=== PATIENT | female | born 1945 | race Caucasian/White ===

== ENCOUNTER 2021-08-07 20:07 | Inpatient (IN) | payer MEDICARE, SELFPAY ==
--- NOTE | ~2021-08-07 | CT_ITS ---
EXAMINATION: CT HEAD WITHOUT CONTRAST CLINICAL INFORMATION: Change in mental status. COMPARISON: None TECHNIQUE: Contiguous axial imaging was performed from the skull base to vertex without intravenous administration of contrast. This CT examination was performed using dose optimization techniques as appropriate, variously including the following: *Automated exposure control *Adjustment of mA and/or kV according to patient size (this includes techniques or standardized protocols for targeted exams where dose is matched to indication/reason for exam; i.e. extremities or head) *Use of iterative reconstruction technique DLP: 617 mGy-cm FINDINGS: There is no evidence of acute intracranial hemorrhage or edematous territorial infarction. A few foci of hypoattenuation in the periventricular and deep white matter are consistent with mild microangiopathy. Anton-white matter differentiation is preserved. Proportional prominence of the ventricles and sulcal spaces. No evidence for obstructive hydrocephalus. No abnormal mass effect or midline shift. No extra-axial fluid collections. No acute soft tissue or osseous abnormalities. Mucosal thickening of the right maxillary sinus which is also asymmetrically hypoexpanded. Remaining of the paranasal sinuses and mastoids are clear. CT/CT head/brain wo con IMPRESSION: No evidence of acute intracranial hemorrhage or edematous territorial infarction. 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 Right maxillary sinus disease. Correlate clinically for acute sinusitis.
[2021-08-07 20:50] VITALS: BP 141/67; PULSE 78; RESP 18; TEMP 37.1; O2SAT 96
[2021-08-07 21:49] LABS: Glucose, Whole Blood 300 mg/dL (60-115)
[2021-08-07] MEDS: traMADoL HCL 50 MG TABLET PO (22:50)
[2021-08-08] VITALS (7 sets, daily range): BP systolic 141–152; BP diastolic 60–74; PULSE 77–151; RESP 18; TEMP 36.7–37.1; O2SAT 95–97; BMI 24.7
[2021-08-08] MEDS: traZODone HCL 50 MG TABLET PO (01:37)
--- NOTE | 2021-08-08 01:44 | PC.ADMIT ---
Patient is a 76 year old female who arrived from [facility]
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
[2021-08-08 07:55] LABS: Glucose, Whole Blood 195 mg/dL (60-115)
[2021-08-08] MEDS: Valsartan 160 MG TABLET PO (08:07)
[2021-08-08] MEDS: Metoprolol Succinate ER 100 MG TAB.ER.24H PO (08:07)
[2021-08-08] MEDS: hydroCHLOROthiazide 12.5 MG TABLET PO (08:08)
[2021-08-08] MEDS: cloNIDine HCL 0.1 MG TABLET PO ×3 (08:08→20:20)
[2021-08-08] MEDS: amLODIPine Besylate 5 MG TABLET PO (08:09)
[2021-08-08] MEDS: Insulin Lispro 100 UNIT/ML 3 ML VIAL SUBCUT ×4 (08:09→20:21)
[2021-08-08 12:00] LABS: Glucose, Whole Blood 371 mg/dL (60-115)
--- NOTE | 2021-08-08 12:11 | PC.NURSE ---
Patient is alert. POC at 12:00 is 371. 10 unit insulin lispro given. notified.
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
[2021-08-08 15:51] LABS: Appearance Urine CLEAR; Color Urine YELLOW; Glucose Urine UA >=1000 MG/DL (NEG); Leukocyte Esterase Urine 1+ (NEG); Nitrite Urine NEG (NEG); PH 5.5 (5.0-8.0); Urine Blood NEG (NEG); Urine Ketones NEG (NEG); Urine Protein TRACE MG/DL (NEG-TRACE)
[2021-08-08 16:11] LABS: Bacteria Urine TRACE /LPF; Squamous Epithelial Cell Urine 1+ /LPF
[2021-08-08 16:27] LABS: Glucose, Whole Blood 208 mg/dL (60-115)
[2021-08-08] MEDS: traMADoL HCL 50 MG TABLET PO (16:55)
[2021-08-08 19:44] LABS: Glucose, Whole Blood 412 mg/dL (60-115)
[2021-08-08] MEDS: Atorvastatin Calcium 40 MG TABLET PO (20:20)
[2021-08-08] MEDS: cephALEXin 500 MG CAPSULE PO (20:21)
[2021-08-08 21:23] LABS: Glucose, Whole Blood 406 mg/dL (60-115)
[2021-08-08] MEDS: Insulin Lispro 100 UNIT/ML 3 ML VIAL 10 UNIT SUBCUT (21:58)
[2021-08-08 22:49] LABS: Glucose, Whole Blood 337 mg/dL (60-115)
[2021-08-09] VITALS (7 sets, daily range): BP systolic 132–151; BP diastolic 62–68; PULSE 85–98; RESP 18; TEMP 37.1–37.4; O2SAT 98
[2021-08-09 06:06] LABS: Glucose, Whole Blood 233 mg/dL (60-115)
[2021-08-09 07:32] LABS: MANUAL DIFF FLAG NO
[2021-08-09 07:44] LABS: Basophils Absolute Auto 0.1 X10*3/uL (0.0-0.2); Basophils Percent Auto 0.6 % (0-2); Eosinophils Absolute Auto 0.4 X10*3/uL (0.0-0.4); Eosinophils Percent Auto 4.2 % (0-4); Hematocrit 39.8 % (37.0-47.0); Hemoglobin 13.5 g/dl (12.0-16.0); Imm Gran Abs Auto 0.04 X10*3/uL (0.00-0.03); Imm Gran Pct Auto 0.4 % (0.0-0.4); Lymphocytes Absolute Auto 2.9 X10*3/uL (1.2-4.9); Mean Corpuscular HGB Conc 33.9 g/dl (31.0-35.0); Mean Corpuscular Hemoglobin 29.3 pg (27.0-33.0); Mean Corpuscular Volume 86.5 fL (80.0-98.0); Mean Platelet Volume 10.3 fL (9.4-12.3); Monocytes Percent Auto 11.1 % (2-11); Neutrophils Absolute Auto 4.7 x10*3/uL (2.0-8.3); Neutrophils Percent Auto 51.7 % (45-73); Platelet Count 321 X10*3/uL (160-400); Red Cell Distribution Width 11.9 % (11.0-16.0)
[2021-08-09 07:51] LABS: Anion Gap 14 (12-20); Blood Urea Nitrogen 30 mg/dL (9-16); Carbon Dioxide 27 mmol/L (22-29); Chloride 99 mmol/L (96-108); Creatinine Clr Calc Pharmacy 29.2; Estimated Glomerular Filt Rate 37; Glucose Random 275 mg/dL (60-115); Potassium 4.3 mmol/L (3.3-5.1); Sodium 136 mmol/L (135-145)
[2021-08-09 07:52] LABS: Glucose, Whole Blood 230 mg/dL (60-115)
[2021-08-09 08:12] LABS: Thyroid Stimulating Hormone 0.63 uIU/mL (0.32-4.0)
[2021-08-09] MEDS: cephALEXin 500 MG CAPSULE PO ×3 (09:00→20:46)
[2021-08-09] MEDS: traMADoL HCL 50 MG TABLET PO ×2 (09:23→23:22)
--- NOTE | 2021-08-09 10:14 | HO.PM.IMCN ---
History of Present Illness Data of Consult Service Date: 08/09/21 Primary Care Provider: Unknown Physician HPI 76 year old female with HTN, HLD, diabetes, opioid use desorder presently admitted to inpatient psych for Psychiatric stabilization , exacerbation of confusion, accusatory statements, paranoia and disorganized behavior. She is extremely talkative and required frequent redirection to stay on topic, she is however cooperative and rather pleasant and has some insight into her medical history including type 2 diabetes and take insulin, cholesterol and high blood pressure . She admit to taking tramadol that was supposed to be short term but has become chronic thing for her. She denies chest pain, shortness of breath dizziness, or other. Review of Systems Review of Systems: Gen: no fever Resp: no sob, no cough CV: no chest, no SAUCEDO, no leg edema GI: No n/v, no abd pain Neuro: No confusion Yes all other systems are reviewed and are negative [facility] Medical History (Updated 08/09/21 @ 10:16 by Melo Acosta MD) Diabetes HLD (hyperlipidemia) HTN (hypertension) Pertinent family history: related no pertient family history such CAD, malignancy Social History Household Members: Spouse Housing: House Do you presently have visiting nurse or other home services: Yes Patient Tobacco Use Status: Never used Tobacco Use of substances other than those prescribed or required for medical reasons: No Substance Use Type: Prescription Drugs and Sedatives Substance Use Type Other:: Tramadol 50mg Substance Use Frequency: Chronic Longstanding Have you been hit, kicked, punched, or otherwise hurt by someone within the past year? If so, by whom?: No Do you feel safe in your current relationship?: Yes Is there a partner from a previous relationship who is making you feel unsafe now?: No Are you made to feel afraid or neglected: No Advance Directives: No Advance Directives Information Provided: No (declined) Do you have thoughts of harming others: None Do you have a plan to hurt others: No Plan Recently lost weight without trying: No Eating poorly because of decreased appetite: No Nutrition Risks: No Nutritional Risk service: No Sexual orientation: Straight/Heterosexual Meds Allergies Allergy/AdvReac Type Severity Reaction Status Date / Time lidocaine Allergy Unknown Verified 08/07/21 21:47 metformin AdvReac Unknown Verified 08/07/21 21:48 Active Medications: Current Medications Acetaminophen (Acetaminophen 325 Mg Tablet) 650 mg PO Q6H PRN PRN Reason: Headache/Pain Mild Scale (1-3) Al Hydroxide/Mg Hydroxide (Magnesium Hydrox/Alum Hydrox 30 Ml Oral.Susp) 30 ml PO Q6H PRN PRN Reason: Heartburn/Nausea Amlodipine Besylate (Amlodipine Besylate 5 Mg Tablet) 5 mg PO DAILY [facility]; Protocol Last Admin: 08/08/21 08:09 Dose: 5 mg Documented by: Atorvastatin Calcium (Atorvastatin Calcium 40 Mg Tablet) 40 mg PO BEDTIME NIKKI Last Admin: 08/08/21 20:20 Dose: 40 mg Documented by: Cephalexin HCl (Cephalexin 500 Mg Capsule) 500 mg PO TID NIKKI Last Admin: 08/09/21 09:00 Dose: 500 mg Documented by: Clonidine HCl (Clonidine Hcl 0.1 Mg Tablet) 0.1 mg PO TID [facility]; Protocol Last Admin: 08/08/21 20:20 Dose: 0.1 mg Documented by: Dextrose (Dextrose 50 % 25 Gm/50 Ml Vial) 25 gm IVPUSH Q15M PRN; Protocol PRN Reason: per Hypoglycemia Standing Ord. Glucose (Glucose Gel 15 Gm Gel..Gram.) 15 gm PO Q15M PRN; Protocol PRN Reason: per Hypoglycemia Standing Ord. Hydrochlorothiazide (Hydrochlorothiazide 12.5 Mg Tablet) 12.5 mg PO DAILY [facility]; Protocol Last Admin: 08/08/21 08:08 Dose: 12.5 mg Documented by: Hydroxyzine HCl (Hydroxyzine Hcl 25 Mg Tablet) 25 mg PO BEDTIME PRN PRN Reason: Anxiety Magnesium Hydroxide (Milk Of Magnesia 30 Ml Oral.Susp) 30 ml PO DAILY PRN PRN Reason: Constipation Metoprolol Succinate (Metoprolol Succinate Er 100 Mg Tab.Er.24h) 100 mg PO DAILY [facility]; Protocol Last Admin: 08/08/21 08:07 Dose: 100 mg Documented by: Tramadol HCl (Tramadol Hcl 50 Mg Tablet) 50 mg PO TID PRN PRN Reason: Pain, Moderate (Pain Scale 4-6 Last Admin: 08/09/21 09:23 Dose: 50 mg Documented by: Trazodone HCl (Trazodone Hcl 50 Mg Tablet) 50 mg PO BEDTIME PRN PRN Reason: Insomnia Last Admin: 08/08/21 01:37 Dose: 50 mg Documented by: Valsartan (Valsartan 160 Mg Tablet) 160 mg PO DAILY [facility]; Protocol Last Admin: 08/08/21 08:07 Dose: 160 mg Documented by: Physical Exam Vital Signs and Narrative: Vital Signs: Last Vital Signs Temp 98.8 F 08/09/21 08:00 Pulse 85 08/09/21 08:00 Resp 18 08/09/21 08:00 BP 132/62 08/09/21 08:00 Pulse Ox 98 08/09/21 08:00 Body Mass Index 24.7 Const: Other: Constitutional: Alert, in no distress, Mental Status: Oriented to person, place and time. Eyes: Pupils are equal, round and reactive to light. Ear, Nose and Throat: Oropharynx clear, mucous membranes moist. Ears and nose without eformities. Respiratory: Clear to auscultation. No wheezing, rales or rhonchi. Cardiovascular: S1 S2 regular. No murmurs, rubs or gallops. Gastrointestinal: Abdomen soft, non-tender, non-distended. Normal bowel sounds.? Neurologic: Cranial nerves II-XII grossly intact. No focal neurological deficits. Moves all extremities spontaneously.? Skin: No rashes or lesions.? Musculoskeletal: No cyanosis or clubbing. Psychiatric: pressured speech Results Labs CBC and Chem 7: 08/09/21 07:27 08/09/21 07:27 Labs: Laboratory Results - last 24 hr 08/08/21 08/08/21 08/08/21 11:51 15:27 16:18 MCV MCH MCHC RDW Plt Count MPV Immature Gran % (Auto) Neut % (Auto) Lymph % (Auto) [place] % (Auto) Eos % (Auto) Baso % (Auto) Lymph # (Auto) [place] # (Auto) Eos # (Auto) Baso # (Auto) Abs Immat Gran (auto) Absolute Neuts (auto) Absolute Nucleated RBC Nucleated RBC % (auto) Anion Gap Estim Creat Clear Calc Estimated GFR POC Glucose 371 H* 208 H Random Glucose Calcium TSH Urine Color YELLOW Urine Appearance CLEAR Urine pH 5.5 Ur Specific [place] 1.020 Urine Protein TRACE Urine Glucose (UA) >=1000 H Urine Ketones NEG Urine Blood NEG Urine Nitrite NEG Ur Leukocyte Esterase 1+ H Urine RBC 1-4 Urine WBC 5-9 H Ur Squamous Epith Cells 1+ Urine Bacteria TRACE 08/08/21 08/08/21 08/08/21 19:36 21:20 22:45 MCV MCH MCHC RDW Plt Count MPV Immature Gran % (Auto) Neut % (Auto) Lymph % (Auto) [place] % (Auto) Eos % (Auto) Baso % (Auto) Lymph # (Auto) [place] # (Auto) Eos # (Auto) Baso # (Auto) Abs Immat Gran (auto) Absolute Neuts (auto) Absolute Nucleated RBC Nucleated RBC % (auto) Anion Gap Estim Creat Clear Calc Estimated GFR POC Glucose 412 H* 406 H* 337 H Random Glucose Calcium TSH Urine Color Urine Appearance Urine pH Ur Specific [place] Urine Protein Urine Glucose (UA) Urine Ketones Urine Blood Urine Nitrite Ur Leukocyte Esterase Urine RBC Urine WBC Ur Squamous Epith Cells Urine Bacteria 08/09/21 08/09/21 08/09/21 05:58 07:27 07:27 MCV 86.5 MCH 29.3 MCHC 33.9 RDW 11.9 Plt Count 321 MPV 10.3 Immature Gran % (Auto) 0.4 Neut % (Auto) 51.7 Lymph % (Auto) 32.0 [place] % (Auto) 11.1 H Eos % (Auto) 4.2 H Baso % (Auto) 0.6 Lymph # (Auto) 2.9 [place] # (Auto) 1.0 Eos # (Auto) 0.4 Baso # (Auto) 0.1 Abs Immat Gran (auto) 0.04 H Absolute Neuts (auto) 4.7 Absolute Nucleated RBC 0.000 Nucleated RBC % (auto) 0.0 Anion Gap 14 Estim Creat Clear Calc 29.2 Estimated GFR 37 POC Glucose 233 H Random Glucose 275 H Calcium 9.0 TSH 0.63 Urine Color Urine Appearance Urine pH Ur Specific [place] Urine Protein Urine Glucose (UA) Urine Ketones Urine Blood Urine Nitrite Ur Leukocyte Esterase Urine RBC Urine WBC Ur Squamous Epith Cells Urine Bacteria 08/09/21 07:45 MCV MCH MCHC RDW Plt Count MPV Immature Gran % (Auto) Neut % (Auto) Lymph % (Auto) [place] % (Auto) Eos % (Auto) Baso % (Auto) Lymph # (Auto) [place] # (Auto) Eos # (Auto) Baso # (Auto) Abs Immat Gran (auto) Absolute Neuts (auto) Absolute Nucleated RBC Nucleated RBC % (auto) Anion Gap Estim Creat Clear Calc Estimated GFR POC Glucose 230 H Random Glucose Calcium TSH Urine Color Urine Appearance Urine pH Ur Specific [place] Urine Protein Urine Glucose (UA) Urine Ketones Urine Blood Urine Nitrite Ur Leukocyte Esterase Urine RBC Urine WBC Ur Squamous Epith Cells Urine Bacteria Imaging Radiologist's Impressions: Impressions Head CT 08/08/21 20:40 IMPRESSION: No evidence of acute intracranial hemorrhage or edematous territorial infarction. 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 Right maxillary sinus disease. Correlate clinically for acute sinusitis. Assessment and Plan (1) Diabetes: Status: Inactive (2) HTN (hypertension): Status: Inactive 76 year old female with HTN, HLD, diabetes, opioid use desorder presently admitted to inpatient psych for Psychiatric stabilization , exacerbation of confusion, accusatory statements, paranoia and disorganized behavior. She is extremely talkative and required frequent redirection to stay on topic, no acute medical issues at presents labs incuding CBC, BMP, TSH reviewed, CT of head reviewed with no acute finding. recomendation Diabetes--unclear what she takes at home--no meds listed on her pharmacy, staff should obtain a list of her home meds with assitance of hubsband at home for now, add SSI, check BS before meals and at bed time. HTN--BP is controlled on present dose of HCTZ, and Norvasc continue HLD-continue Lipitor Psych/do--management per psych satellite dish technician.. Will follow on PRN basis, thanks for consult
[2021-08-09] MEDS: cloNIDine HCL 0.1 MG TABLET PO ×2 (15:13→20:46)
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
[2021-08-09 16:55] LABS: Glucose, Whole Blood 356 mg/dL (60-115)
[2021-08-09 20:04] LABS: Glucose, Whole Blood 418 mg/dL (60-115)
[2021-08-09] MEDS: Atorvastatin Calcium 40 MG TABLET PO (20:46)
[2021-08-09] MEDS: Insulin Lispro 100 UNIT/ML 3 ML VIAL SUBCUT (20:46)
[2021-08-09 21:46] LABS: Glucose, Whole Blood 300 mg/dL (60-115)
[2021-08-10] VITALS (8 sets, daily range): BP systolic 121–201; BP diastolic 60–84; PULSE 70–96; RESP 19; TEMP 35.8–36.7; O2SAT 96–100
[2021-08-10 06:13] LABS: Glucose, Whole Blood 188 mg/dL (60-115)
[2021-08-10] MEDS: cephALEXin 500 MG CAPSULE PO ×3 (08:13→20:09)
[2021-08-10] MEDS: amLODIPine Besylate 5 MG TABLET PO (08:14)
[2021-08-10] MEDS: Metoprolol Succinate ER 25 MG TAB.ER.24H PO (08:15)
[2021-08-10] MEDS: hydroCHLOROthiazide 12.5 MG TABLET PO (08:17)
[2021-08-10] MEDS: cloNIDine HCL 0.1 MG TABLET PO ×3 (08:17→20:09)
--- NOTE | 2021-08-10 13:55 | HO.PSYCHPN ---
Subjective Subjective Date of Service: 08/10/21 Reason For Visit: Unspec Dementia Adjustment D/O Opiod D/O Interim History: Patient seen and DW team. Patient seen in the dining area. She was pleasant. Talkative and pressured. She reported she shouldn't be here because it is an insane asylum . She was talkative. She reported poor sleep. She talked about her upbringing and her mom being an immigrant [place] physician that fled [facility] to the . She was 8 months old when they arrived. Says she was one of 2 women to be accepted to an [employer] school . She says she has a painting that she made that's appraised at $40k. Her antihypertensives were trimmed down by medicine. Her BP was elevated in AM but came down after AM meds. Patient exhibits no disruptive behavior. A Agrees to a trial of Depakote Review of Systems Review of Systems Gen: no fever Resp: no sob, no cough CV: no chest, no SAUCEDO, no leg edema GI: No n/v, no abd pain Neuro: No confusion Yes all other systems are reviewed and are negative Mental Status Exam Mental Status Exam Narrative: Patient Appearance: Well Grooomed. Patient Orientation: Person and Situation Level of Consciousness: Awake and Disoriented Patient Behavior: Cooperative Mood Description: Depressed Affect Description: Constricted Patient Cognition Impaired: Yes Ability to Follow Directions: Good Speech Pattern: pressured Hallucinations: None Delusions: Paranoid Ideation Thought Process: Overinclusive, Thought Content: Circumstantial Judgement: Poor Patient Appearance: Well Grooomed (On hospital gowns) Patient Orientation: Person and Situation Level of Consciousness: Awake and Disoriented Patient Behavior: Cooperative Mood Description: Depressed and Anxious Affect Description: Constricted Patient Cognition Impaired: Yes Ability to Follow Directions: Good Speech Pattern: Perseverating, Appropriate, Spontaneous Speech, Rapid, Excessive and Pressured Thought Content: positive for Racing Diagnostics Vital Signs (24Hr): Vital Signs - 24 hr 08/09/21 20:46 08/09/21 21:31 08/10/21 06:00 Temperature 99.4 F 96.4 F L Pulse Rate 93 93 96 Respiratory Rate 18 Blood Pressure 151/67 H 151/67 H 201/84 H Pulse Oximetry 98 96 08/10/21 08:14 08/10/21 08:15 08/10/21 08:17 Temperature Pulse Rate 96 96 96 Respiratory Rate Blood Pressure 201/84 H 201/84 H 201/84 H Pulse Oximetry 08/10/21 09:46 08/10/21 15:28 Temperature Pulse Rate 70 84 Respiratory Rate Blood Pressure 149/69 H 121/60 Pulse Oximetry 100 Body Mass Index 24.7 Labs Results: 08/09/21 07:27 08/09/21 07:27 Labs: Laboratory Results - last 48 hr 08/08/21 08/08/21 08/09/21 21:20 22:45 05:58 WBC RBC Hgb Hct MCV MCH MCHC RDW Plt Count MPV Immature Gran % (Auto) Neut % (Auto) Lymph % (Auto) [place] % (Auto) Eos % (Auto) Baso % (Auto) Lymph # (Auto) [place] # (Auto) Eos # (Auto) Baso # (Auto) Abs Immat Gran (auto) Absolute Neuts (auto) Absolute Nucleated RBC Nucleated RBC % (auto) Sodium Potassium Chloride Carbon Dioxide Anion Gap BUN Creatinine Estim Creat Clear Calc Estimated GFR POC Glucose 406 H* 337 H 233 H Random Glucose Calcium Total Bilirubin Direct Bilirubin AST ALT Alkaline Phosphatase Total Protein Albumin TSH 08/09/21 08/09/21 08/09/21 07:27 07:27 07:45 WBC 9.0 RBC 4.60 Hgb 13.5 Hct 39.8 MCV 86.5 MCH 29.3 MCHC 33.9 RDW 11.9 Plt Count 321 MPV 10.3 Immature Gran % (Auto) 0.4 Neut % (Auto) 51.7 Lymph % (Auto) 32.0 [place] % (Auto) 11.1 H Eos % (Auto) 4.2 H Baso % (Auto) 0.6 Lymph # (Auto) 2.9 [place] # (Auto) 1.0 Eos # (Auto) 0.4 Baso # (Auto) 0.1 Abs Immat Gran (auto) 0.04 H Absolute Neuts (auto) 4.7 Absolute Nucleated RBC 0.000 Nucleated RBC % (auto) 0.0 Sodium 136 Potassium 4.3 Chloride 99 Carbon Dioxide 27 Anion Gap 14 BUN 30 H Creatinine 1.39 Estim Creat Clear Calc 29.2 Estimated GFR 37 POC Glucose 230 H Random Glucose 275 H Calcium 9.0 Total Bilirubin Direct Bilirubin AST ALT Alkaline Phosphatase Total Protein Albumin TSH 0.63 08/09/21 08/09/21 08/09/21 16:51 19:47 21:41 WBC RBC Hgb Hct MCV MCH MCHC RDW Plt Count MPV Immature Gran % (Auto) Neut % (Auto) Lymph % (Auto) [place] % (Auto) Eos % (Auto) Baso % (Auto) Lymph # (Auto) [place] # (Auto) Eos # (Auto) Baso # (Auto) Abs Immat Gran (auto) Absolute Neuts (auto) Absolute Nucleated RBC Nucleated RBC % (auto) Sodium Potassium Chloride Carbon Dioxide Anion Gap BUN Creatinine Estim Creat Clear Calc Estimated GFR POC Glucose 356 H* 418 H* 300 H Random Glucose Calcium Total Bilirubin Direct Bilirubin AST ALT Alkaline Phosphatase Total Protein Albumin TSH 08/10/21 08/10/21 08/10/21 06:04 14:26 16:23 WBC RBC Hgb Hct MCV MCH MCHC RDW Plt Count MPV Immature Gran % (Auto) Neut % (Auto) Lymph % (Auto) [place] % (Auto) Eos % (Auto) Baso % (Auto) Lymph # (Auto) [place] # (Auto) Eos # (Auto) Baso # (Auto) Abs Immat Gran (auto) Absolute Neuts (auto) Absolute Nucleated RBC Nucleated RBC % (auto) Sodium Potassium Chloride Carbon Dioxide Anion Gap BUN Creatinine Estim Creat Clear Calc Estimated GFR POC Glucose 188 H 315 H Random Glucose Calcium Total Bilirubin 0.8 Direct Bilirubin 0.3 AST 19 ALT 14 Alkaline Phosphatase 77 Total Protein 7.5 Albumin 4.3 TSH 08/10/21 19:48 WBC RBC Hgb Hct MCV MCH MCHC RDW Plt Count MPV Immature Gran % (Auto) Neut % (Auto) Lymph % (Auto) [place] % (Auto) Eos % (Auto) Baso % (Auto) Lymph # (Auto) [place] # (Auto) Eos # (Auto) Baso # (Auto) Abs Immat Gran (auto) Absolute Neuts (auto) Absolute Nucleated RBC Nucleated RBC % (auto) Sodium Potassium Chloride Carbon Dioxide Anion Gap BUN Creatinine Estim Creat Clear Calc Estimated GFR POC Glucose 276 H Random Glucose Calcium Total Bilirubin Direct Bilirubin AST ALT Alkaline Phosphatase Total Protein Albumin TSH Imaging Radiology Impressions: ITS Impressions Head CT 08/08/21 20:40 IMPRESSION: No evidence of acute intracranial hemorrhage or edematous territorial infarction. 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 Right maxillary sinus disease. Correlate clinically for acute sinusitis. Medications Medications Current Medications Acetaminophen (Acetaminophen 325 Mg Tablet) 650 mg PO Q6H PRN PRN Reason: Headache/Pain Mild Scale (1-3) Al Hydroxide/Mg Hydroxide (Magnesium Hydrox/Alum Hydrox 30 Ml Oral.Susp) 30 ml PO Q6H PRN PRN Reason: Heartburn/Nausea Amlodipine Besylate (Amlodipine Besylate 5 Mg Tablet) 5 mg PO DAILY [facility]; Protocol Last Admin: 08/10/21 08:14 Dose: 5 mg Documented by: Atorvastatin Calcium (Atorvastatin Calcium 40 Mg Tablet) 40 mg PO BEDTIME [facility] Last Admin: 08/09/21 20:46 Dose: 40 mg Documented by: Cephalexin HCl (Cephalexin 500 Mg Capsule) 500 mg PO TID [facility] Last Admin: 08/10/21 15:28 Dose: 500 mg Documented by: Clonidine HCl (Clonidine Hcl 0.1 Mg Tablet) 0.1 mg PO TID [facility]; Protocol Last Admin: 08/10/21 15:28 Dose: 0.1 mg Documented by: Dextrose (Dextrose 50 % 25 Gm/50 Ml Vial) 25 gm IVPUSH Q15M PRN; Protocol PRN Reason: per Hypoglycemia Standing Ord. Divalproex Sodium (Divalproex Sodium Sprinkles 125 Mg Cap.Spr) 125 mg PO BID [facility] Glucose (Glucose Gel 15 Gm Gel..Gram.) 15 gm PO Q15M PRN; Protocol PRN Reason: per Hypoglycemia Standing Ord. Hydrochlorothiazide (Hydrochlorothiazide 12.5 Mg Tablet) 12.5 mg PO DAILY [facility]; Protocol Last Admin: 08/10/21 08:17 Dose: 12.5 mg Documented by: Hydroxyzine HCl (Hydroxyzine Hcl 25 Mg Tablet) 25 mg PO BEDTIME PRN PRN Reason: Anxiety Insulin Human Lispro (Insulin Lispro 100 Unit/Ml 3 Ml Vial) 0 unit SUBCUT QIDACHS [facility]; Protocol Last Admin: 08/10/21 16:33 Dose: 8 unit Documented by: Magnesium Hydroxide (Milk Of Magnesia 30 Ml Oral.Susp) 30 ml PO DAILY PRN PRN Reason: Constipation Metoprolol Succinate (Metoprolol Succinate Er 25 Mg Tab.Er.24h) 25 mg PO DAILY [facility]; Protocol Last Admin: 08/10/21 08:15 Dose: 25 mg Documented by: Tramadol HCl (Tramadol Hcl 50 Mg Tablet) 50 mg PO TID PRN PRN Reason: Pain, Moderate (Pain Scale 4-6 Last Admin: 08/10/21 15:31 Dose: 50 mg Documented by: Trazodone HCl (Trazodone Hcl 50 Mg Tablet) 50 mg PO BEDTIME PRN PRN Reason: Insomnia Last Admin: 08/08/21 01:37 Dose: 50 mg Documented by: Allergies Allergies Allergy/AdvReac Type Severity Reaction Status Date / Time lidocaine Allergy Unknown Verified 08/07/21 21:47 metformin AdvReac Unknown Verified 08/07/21 21:48 Assessment & Plan Assessment & Plan (1) Diabetes: Status: Inactive Code(s): E11.9 - Type 2 diabetes mellitus without complications Assessment and Plan: Asked medicine to weigh in on sliding scale use. (2) HTN (hypertension): Status: Inactive Code(s): I10 - Essential (primary) hypertension Assessment and Plan: Patient on numerous hypertensives that were held today because she is normai. Asked medicine to weigh in for management. Holding antihypertensives di (3) Depressive disorder: Status: Acute Code(s): F32.9 - Major depressive disorder, single episode, unspecified Assessment and Plan: (1) Depressive disorder: ?Status:?Acute ?Code(s): F32.9 - Major depressive disorder, single episode, unspecified (2) Delirium: ?Status:?Acute ?Code(s): R41.0 - Disorientation, unspecified ?Assessment and Plan: Elderly female with no prior psychiatric admissions with a long history of chronic use of tramadol, admitted for exacerbation of confusion, accusatory statements, paranoia and disorganized behavior.? Plan - Gather collateral information. - Will check LFT's - Start Depakote Sprinkles 125 mg BID. Considered low dose Risperidone but DM gives pause. - DC Nortriptyline. - blood work with CBC, basic metabolic panel and urinalysis reviewed - CT scan head without contrast reviewed - Reassessment with results (4) Delirium: Status: Acute Code(s): R41.0 - Disorientation, unspecified Assessment and Plan: 76 year old female with HTN, HLD, diabetes, opioid use desorder presently admitted to inpatient psych for Psychiatric stabilization , exacerbation of confusion, accusatory statements, paranoia and disorganized behavior. She is extremely talkative and required frequent redirection to stay on topic, no acute medical issues at presents labs incuding CBC, BMP, TSH reviewed, CT of head reviewed with no acute finding. recomendation Diabetes--unclear what she takes at home--no meds listed on her pharmacy, staff should obtain a list of her home meds with assitance of hubsband at home for now, add SSI, check BS before meals and at bed time. HTN--BP is controlled on present dose of HCTZ, and Norvasc continue HLD-continue Lipitor Psych/do--management per psych electronic page makeup system operator.. Will follow on PRN basis, thanks for consult I spent minutes with the patient and/or on the patient floor today, greater than?50% of which was spent counseling/coordinating care. Reason for contiued inpatient stay Substantial Risk for: harm to others and inability to function
[2021-08-10 14:56] LABS: Alanine Aminotransferase 14 U/L (0-31); Albumin Level 4.3 g/dL (3.5-5.0); Alkaline Phosphatase 77 U/L (39-117); Aspartate Amino Transferase 19 U/L (5-31); Bilirubin Direct 0.3 mg/dL (0.0-0.5); Bilirubin Total 0.8 mg/dL (0.0-1.0); Total Protein 7.5 g/dL (6.5-8.0)
[2021-08-10] MEDS: traMADoL HCL 50 MG TABLET PO ×2 (15:31→23:14)
[2021-08-10 16:26] LABS: Glucose, Whole Blood 315 mg/dL (60-115)
[2021-08-10] MEDS: Insulin Lispro 100 UNIT/ML 3 ML VIAL SUBCUT ×2 (16:33→20:08)
[2021-08-10 19:53] LABS: Glucose, Whole Blood 276 mg/dL (60-115)
[2021-08-10] MEDS: Divalproex Sodium Sprinkles 125 MG CAP.DR.SPR PO (20:09)
[2021-08-10] MEDS: Atorvastatin Calcium 40 MG TABLET PO (20:10)
[2021-08-10] MEDS: traZODone HCL 50 MG TABLET PO (22:18)
[2021-08-11] MEDS: Acetaminophen 325 MG TABLET 650 MG PO (05:00)
[2021-08-11 06:35] LABS: Glucose, Whole Blood 256 mg/dL (60-115)
[2021-08-11] MEDS: Insulin Lispro 100 UNIT/ML 3 ML VIAL SUBCUT ×4 (06:41→20:12)
[2021-08-11 08:25] VITALS: BP 147/64; PULSE 98
[2021-08-11] MEDS: Metoprolol Succinate ER 25 MG TAB.ER.24H PO (08:25)
[2021-08-11] MEDS: Divalproex Sodium Sprinkles 125 MG CAP.DR.SPR PO ×2 (08:25→20:14)
[2021-08-11 08:26] VITALS: BP 147/64; PULSE 98
[2021-08-11] MEDS: cloNIDine HCL 0.1 MG TABLET PO ×3 (08:26→20:14)
[2021-08-11] MEDS: amLODIPine Besylate 5 MG TABLET PO (08:26)
[2021-08-11] MEDS: cephALEXin 500 MG CAPSULE PO ×3 (08:27→20:13)
[2021-08-11] MEDS: hydroCHLOROthiazide 12.5 MG TABLET PO (08:27)
[2021-08-11 08:59] VITALS: BP 147/64; PULSE 98; TEMP 36.9; O2SAT 96
[2021-08-11 12:05] LABS: Glucose, Whole Blood 364 mg/dL (60-115)
[2021-08-11 14:53] VITALS: BP 171/73; PULSE 89
--- NOTE | 2021-08-11 16:04 | P.PNPSI_ITS ---
Subjective Subjective Date of Service: 08/11/21 Reason For Visit: Unspec Dementia Adjustment D/O Opiod D/O Subjective Notes: Conditional Voluntary Interim History: The nursing staff reports that the patient has been compliant with treatment. She was started on Depakote for mood stabilizing sings the patient showed some mood lability and nortriptyline was not started. Today, on interview she denies new symptoms she feels okay. We had a family meeting with her daughter and we explained that she had a UTI and she was started on antibiotics. No new symptoms. Mental Status Exam Mental Status Exam Patient Appearance: Well Grooomed Patient Orientation: Person Level of Consciousness: Appropriate Patient Behavior: Cooperative Mood Description: Withdrawn Affect Description: Constricted Patient Cognition Impaired: No Ability to Follow Directions: Good Speech Pattern: Clear Hallucinations: None Delusions: Not Present Thought Process: Evasive Thought Content: positive for Perseveration Judgement: Fair Diagnostics Vital Signs (24Hr): Vital Signs - 24 hr 08/10/21 20:09 08/10/21 20:13 08/11/21 08:25 Temperature 98.1 F Pulse Rate 91 91 98 Respiratory Rate 19 Blood Pressure 159/74 H 159/74 H 147/64 H Pulse Oximetry 97 08/11/21 08:26 08/11/21 08:59 08/11/21 14:53 Temperature 98.5 F Pulse Rate 98 98 89 Respiratory Rate Blood Pressure 147/64 H 147/64 H 171/73 H Pulse Oximetry 96 Body Mass Index 24.7 Labs Results: 08/09/21 07:27 08/09/21 07:27 Labs: Laboratory Results - last 48 hr 08/09/21 08/09/21 08/09/21 16:51 19:47 21:41 POC Glucose 356 H* 418 H* 300 H Total Bilirubin Direct Bilirubin AST ALT Alkaline Phosphatase Total Protein Albumin 08/10/21 08/10/21 08/10/21 06:04 14:26 16:23 POC Glucose 188 H 315 H Total Bilirubin 0.8 Direct Bilirubin 0.3 AST 19 ALT 14 Alkaline Phosphatase 77 Total Protein 7.5 Albumin 4.3 08/10/21 08/11/21 08/11/21 19:48 06:30 12:00 POC Glucose 276 H 256 H 364 H* Total Bilirubin Direct Bilirubin AST ALT Alkaline Phosphatase Total Protein Albumin Imaging Radiology Impressions: ITS Impressions Head CT 08/08/21 20:40 IMPRESSION: No evidence of acute intracranial hemorrhage or edematous territorial infarction. 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 Right maxillary sinus disease. Correlate clinically for acute sinusitis. Medications Medications Current Medications Acetaminophen (Acetaminophen 325 Mg Tablet) 650 mg PO Q6H PRN PRN Reason: Headache/Pain Mild Scale (1-3) Last Admin: 08/11/21 05:00 Dose: 650 mg Documented by: Al Hydroxide/Mg Hydroxide (Magnesium Hydrox/Alum Hydrox 30 Ml Oral.Susp) 30 ml PO Q6H PRN PRN Reason: Heartburn/Nausea Amlodipine Besylate (Amlodipine Besylate 5 Mg Tablet) 5 mg PO DAILY NIKKI; Prot ocol Last Admin: 08/11/21 08:26 Dose: 5 mg Documented by: Atorvastatin Calcium (Atorvastatin Calcium 40 Mg Tablet) 40 mg PO BEDTIME NIKKI Last Admin: 08/10/21 20:10 Dose: 40 mg Documented by: Cephalexin HCl (Cephalexin 500 Mg Capsule) 500 mg PO TID [facility] Last Admin: 08/11/21 14:57 Dose: 500 mg Documented by: Clonidine HCl (Clonidine Hcl 0.1 Mg Tablet) 0.1 mg PO TID [facility]; Protocol Last Admin: 08/11/21 14:53 Dose: 0.1 mg Documented by: Dextrose (Dextrose 50 % 25 Gm/50 Ml Vial) 25 gm IVPUSH Q15M PRN; Protocol PRN Reason: per Hypoglycemia Standing Ord. Divalproex Sodium (Divalproex Sodium Sprinkles 125 Mg ) 125 mg PO BID [facility] Last Admin: 08/11/21 08:25 Dose: 125 mg Documented by: Glucose (Glucose Gel 15 Gm Gel..Gram.) 15 gm PO Q15M PRN; Protocol PRN Reason: per Hypoglycemia Standing Ord. Hydrochlorothiazide (Hydrochlorothiazide 12.5 Mg Tablet) 12.5 mg PO DAILY [facility]; Protocol Last Admin: 08/11/21 08:27 Dose: 12.5 mg Documented by: Hydroxyzine HCl (Hydroxyzine Hcl 25 Mg Tablet) 25 mg PO BEDTIME PRN PRN Reason: Anxiety Insulin Human Lispro (Insulin Lispro 100 Unit/Ml 3 Ml Vial) 0 unit SUBCUT QIDACHS [facility]; Protocol Last Admin: 08/11/21 12:09 Dose: 10 unit Documented by: Magnesium Hydroxide (Milk Of Magnesia 30 Ml Oral.Susp) 30 ml PO DAILY PRN PRN Reason: Constipation Metoprolol Succinate (Metoprolol Succinate Er 25 Mg Tab.Er.24h) 25 mg PO DAILY NIKKI; Protocol Last Admin: 08/11/21 08:25 Dose: 25 mg Documented by: Tramadol HCl (Tramadol Hcl 50 Mg Tablet) 50 mg PO TID PRN PRN Reason: Pain, Moderate (Pain Scale 4-6 Last Admin: 08/10/21 23:14 Dose: 50 mg Documented by: Trazodone HCl (Trazodone Hcl 50 Mg Tablet) 50 mg PO BEDTIME PRN PRN Reason: Insomnia Last Admin: 08/10/21 22:18 Dose: 50 mg Documented by: Allergies Allergies Allergy/AdvReac Type Severity Reaction Status Date / Time lidocaine Allergy Unknown Verified 08/07/21 21:47 metformin AdvReac Unknown Verified 08/07/21 21:48 Assessment & Plan Assessment & Plan (1) Diabetes: Status: Inactive Code(s): E11.9 - Type 2 diabetes mellitus without complications Assessment and Plan: Asked medicine to weigh in on sliding scale use. (2) HTN (hypertension): Status: Inactive Code(s): I10 - Essential (primary) hypertension Assessment and Plan: Patient on numerous hypertensives that were held today because she is normai. Asked medicine to weigh in for management. Holding antihypertensives di (3) Depressive disorder: Status: Acute Code(s): F32.9 - Major depressive disorder, single episode, unspecified Assessment and Plan: (1) Depressive disorder: ?Status:?Acute ?Code(s): F32.9 - Major depressive disorder, single episode, unspecified (2) Delirium: ?Status:?Acute ?Code(s): R41.0 - Disorientation, unspecified ?Assessment and Plan: Elderly female with no prior psychiatric admissions with a long history of chronic use of tramadol, admitted for exacerbation of confusion, accusatory statements, paranoia and disorganized behavior.? Plan Keep same treatment. Possible discharge for Wednesday (4) Delirium: Status: Acute Code(s): R41.0 - Disorientation, unspecified Assessment and Plan: 76 year old female with HTN, HLD, diabetes, opioid use desorder presently admitted to inpatient psych for Psychiatric stabilization , exacerbation of confusion, accusatory statements, paranoia and disorganized behavior. She is extremely talkative and required frequent redirection to stay on topic, no acute medical issues at presents labs incuding CBC, BMP, TSH reviewed, CT of head reviewed with no acute finding. recomendation Diabetes--unclear what she takes at home--no meds listed on her pharmacy, staff should obtain a list of her home meds with assitance of hubsband at home for now, add SSI, check BS before meals and at bed time. HTN--BP is controlled on present dose of HCTZ, and Norvasc continue HLD-continue Lipitor Psych/do--management per psych non morse intercept technician.. Will follow on PRN basis, thanks for consult I spent minutes with the patient and/or on the patient floor today, greater than?50% of which was spent counseling/coordinating care. Reason for contiued inpatient stay Substantial Risk for: inability to function, rapid decompensation and med/psych decompensation
[2021-08-11 17:06] LABS: Glucose, Whole Blood 283 mg/dL (60-115)
[2021-08-11 20:04] LABS: Glucose, Whole Blood 319 mg/dL (60-115)
[2021-08-11] MEDS: Atorvastatin Calcium 40 MG TABLET PO (20:13)
[2021-08-11 20:14] VITALS: BP 163/68; PULSE 82
[2021-08-11] MEDS: traMADoL HCL 50 MG TABLET PO (20:15)
[2021-08-11] MEDS: traZODone HCL 50 MG TABLET PO (20:15)
[2021-08-11 20:18] VITALS: BP 163/68; PULSE 82; RESP 18; TEMP 36.4; O2SAT 99
[2021-08-12] MEDS: traMADoL HCL 50 MG TABLET PO (05:06)
[2021-08-12 06:32] LABS: Glucose, Whole Blood 202 mg/dL (60-115)
[2021-08-12] MEDS: Insulin Lispro 100 UNIT/ML 3 ML VIAL SUBCUT ×4 (06:34→21:01)
[2021-08-12 07:37] LABS: Glucose, Whole Blood 191 mg/dL (60-115)
[2021-08-12 09:48] VITALS: BP 134/60; PULSE 90; RESP 17; TEMP 37.2; O2SAT 98
[2021-08-12 09:49] VITALS: BP 134/60; PULSE 90
[2021-08-12] MEDS: amLODIPine Besylate 5 MG TABLET PO (09:49)
[2021-08-12] MEDS: cloNIDine HCL 0.1 MG TABLET PO ×3 (09:49→21:00)
[2021-08-12] MEDS: cephALEXin 500 MG CAPSULE PO ×3 (09:49→21:00)
[2021-08-12 09:50] VITALS: BP 134/60; PULSE 90
[2021-08-12] MEDS: Metoprolol Succinate ER 25 MG TAB.ER.24H PO (09:50)
[2021-08-12] MEDS: Divalproex Sodium Sprinkles 125 MG CAP.DR.SPR PO ×2 (09:50→21:00)
[2021-08-12] MEDS: hydroCHLOROthiazide 12.5 MG TABLET PO (09:50)
--- NOTE | 2021-08-12 09:56 | HO.PSYCHPN ---
Subjective Subjective Date of Service: 08/12/21 Reason For Visit: Unspec Dementia Adjustment D/O Opiod D/O Subjective Notes: Lopez Warning and Conditional Voluntary Interim History: Patient seen and discussed with team. Patient evaluated this morning and upon interview Pt reports her sleep is impaired, has difficulty falling asleep. Pt continued to be verbose, perseverative, attributes this to being anxious. 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 Says she is anxious because she is in a mental institution and What if they embedded systems engineer me? Worried that staff will think im a nut. Pt asks about a PRN medication for anxiety and say lorazepam has worked for her in the past. In the milieu, patient is safe and appropriate in behavior. Denies SI/SIB/HI upon inquiry. Denies irritability or assaultive ideation. Says she feels safe. Medication Compliance: Yes Side effects from medications: No Attending Groups: Yes Review of Systems Acute medical concerns: No Medical Review of Systems: unchanged Mental Status Exam Mental Status Exam Narrative: Patient Appearance:?Well Grooomed Patient Orientation:?Person Level of Consciousness:?Appropriate Patient Behavior:?Cooperative Mood Description:?Anxious Affect Description:?Anxious, constricted Patient Cognition Impaired:?No Ability to Follow Directions:?Good Speech Pattern:?Clear Hallucinations:?None Delusions:?Not Present Thought Process:?Evasive Thought Content:?positive for Perseveration Judgement:?Fair Diagnostics Vital Signs (24Hr): Vital Signs - 24 hr 08/11/21 14:53 08/11/21 20:14 08/11/21 20:18 Temperature 97.6 F Pulse Rate 89 82 82 Respiratory Rate 18 Blood Pressure 171/73 H 163/68 H 163/68 H Pulse Oximetry 99 08/12/21 09:48 08/12/21 09:49 08/12/21 09:50 Temperature 98.9 F Pulse Rate 90 90 90 Respiratory Rate 17 Blood Pressure 134/60 134/60 134/60 Pulse Oximetry 98 Body Mass Index 24.7 Labs Results: 08/09/21 07:27 08/09/21 07:27 Labs: Laboratory Results - last 48 hr 08/10/21 08/10/21 08/10/21 14:26 16:23 19:48 POC Glucose 315 H 276 H Total Bilirubin 0.8 Direct Bilirubin 0.3 AST 19 ALT 14 Alkaline Phosphatase 77 Total Protein 7.5 Albumin 4.3 08/11/21 08/11/21 08/11/21 06:30 12:00 16:55 POC Glucose 256 H 364 H* 283 H Total Bilirubin Direct Bilirubin AST ALT Alkaline Phosphatase Total Protein Albumin 08/11/21 08/12/21 08/12/21 19:57 06:28 07:32 POC Glucose 319 H 202 H 191 H Total Bilirubin Direct Bilirubin AST ALT Alkaline Phosphatase Total Protein Albumin Imaging Radiology Impressions: ITS Impressions Head CT 08/08/21 20:40 IMPRESSION: No evidence of acute intracranial hemorrhage or edematous territorial infarction. 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 Right maxillary sinus disease. Correlate clinically for acute sinusitis. Medications Medications Current Medications Acetaminophen (Acetaminophen 325 Mg Tablet) 650 mg PO Q6H PRN PRN Reason: Headache/Pain Mild Scale (1-3) Last Admin: 08/11/21 05:00 Dose: 650 mg Documented by: Al Hydroxide/Mg Hydroxide (Magnesium Hydrox/Alum Hydrox 30 Ml Oral.Susp) 30 ml PO Q6H PRN PRN Reason: Heartburn/Nausea Amlodipine Besylate (Amlodipine Besylate 5 Mg Tablet) 5 mg PO DAILY [facility]; Protocol Last Admin: 08/12/21 09:49 Dose: 5 mg Documented by: Atorvastatin Calcium (Atorvastatin Calcium 40 Mg Tablet) 40 mg PO BEDTIME [facility] Last Admin: 08/11/21 20:13 Dose: 40 mg Documented by: Cephalexin HCl (Cephalexin 500 Mg Capsule) 500 mg PO TID [facility] Last Admin: 08/12/21 09:49 Dose: 500 mg Documented by: Clonidine HCl (Clonidine Hcl 0.1 Mg Tablet) 0.1 mg PO TID [facility]; Protocol Last Admin: 08/12/21 09:49 Dose: 0.1 mg Documented by: Dextrose (Dextrose 50 % 25 Gm/50 Ml Vial) 25 gm IVPUSH Q15M PRN; Protocol PRN Reason: per Hypoglycemia Standing Ord. Divalproex Sodium (Divalproex Sodium Sprinkles 125 Mg ) 125 mg PO BID [facility] Last Admin: 08/12/21 09:50 Dose: 125 mg Documented by: Glucose (Glucose Gel 15 Gm Gel..Gram.) 15 gm PO Q15M PRN; Protocol PRN Reason: per Hypoglycemia Standing Ord. Hydrochlorothiazide (Hydrochlorothiazide 12.5 Mg Tablet) 12.5 mg PO DAILY [facility]; Protocol Last Admin: 08/12/21 09:50 Dose: 12.5 mg Documented by: Hydroxyzine HCl (Hydroxyzine Hcl 25 Mg Tablet) 25 mg PO BEDTIME PRN PRN Reason: Anxiety Insulin Human Lispro (Insulin Lispro 100 Unit/Ml 3 Ml Vial) 0 unit SUBCUT QIDACHS [facility]; Protocol Last Admin: 08/12/21 06:34 Dose: 4 unit Documented by: Magnesium Hydroxide (Milk Of Magnesia 30 Ml Oral.Susp) 30 ml PO DAILY PRN PRN Reason: Constipation Metoprolol Succinate (Metoprolol Succinate Er 25 Mg Tab.Er.24h) 25 mg PO DAILY [facility]; Protocol Last Admin: 08/12/21 09:50 Dose: 25 mg Documented by: Tramadol HCl (Tramadol Hcl 50 Mg Tablet) 50 mg PO TID PRN PRN Reason: Pain, Moderate (Pain Scale 4-6 Last Admin: 08/12/21 05:06 Dose: 50 mg Documented by: Trazodone HCl (Trazodone Hcl 50 Mg Tablet) 50 mg PO BEDTIME PRN PRN Reason: Insomnia Last Admin: 08/11/21 20:15 Dose: 50 mg Documented by: Allergies Allergies Allergy/AdvReac Type Severity Reaction Status Date / Time lidocaine Allergy Unknown Verified 08/07/21 21:47 metformin AdvReac Unknown Verified 08/07/21 21:48 Assessment & Plan Assessment & Plan (1) Diabetes: Status: Inactive Code(s): E11.9 - Type 2 diabetes mellitus without complications Assessment and Plan: Asked RN to obtain pharmacy records and pt is prescribed humalog subcut TID, will add this to med regimen. (2) HTN (hypertension): Status: Inactive Code(s): I10 - Essential (primary) hypertension Assessment and Plan: Patient on numerous hypertensives that were held today because she is normai. Asked medicine to weigh in for management. Holding antihypertensives di (3) Depressive disorder: Status: Acute Code(s): F32.9 - Major depressive disorder, single episode, unspecified Assessment and Plan: (1) Depressive disorder: ?Status:?Acute ?Code(s): F32.9 - Major depressive disorder, single episode, unspecified (2) Delirium: ?Status:?Acute ?Code(s): R41.0 - Disorientation, unspecified ?Assessment and Plan: Elderly female with no prior psychiatric admissions with a long history of chronic use of tramadol, admitted for exacerbation of confusion, accusatory statements, paranoia and disorganized behavior.? Plan Keep same treatment. Possible discharge for Saturday 08/11: Start zyprexa 2.5 mg Q6H PRN for perseverative and preoccupied thoughts, severe anxiety, may also help with sleep (4) Delirium: Status: Acute Code(s): R41.0 - Disorientation, unspecified Assessment and Plan: Continue antibiotic course of treatment I spent minutes with the patient and/or on the patient floor today, greater than?50% of which was spent counseling/coordinating care. Reason for contiued inpatient stay Substantial Risk for: med/psych decompensation
[2021-08-12 11:50] LABS: Glucose, Whole Blood 390 mg/dL (60-115)
[2021-08-12 16:37] LABS: Glucose, Whole Blood 292 mg/dL (60-115)
[2021-08-12 19:30] VITALS: BP 139/61; PULSE 78; RESP 19; TEMP 37; O2SAT 96
[2021-08-12 19:49] LABS: Glucose, Whole Blood 405 mg/dL (60-115)
[2021-08-12 21:00] VITALS: BP 139/61; PULSE 78
[2021-08-12] MEDS: Atorvastatin Calcium 40 MG TABLET PO (21:00)
[2021-08-13 00:10] LABS: Glucose, Whole Blood 237 mg/dL (60-115)
[2021-08-13] MEDS: traMADoL HCL 50 MG TABLET PO (00:21)
[2021-08-13 05:43] LABS: Glucose, Whole Blood 207 mg/dL (60-115)
[2021-08-13] MEDS: Insulin Lispro 100 UNIT/ML 3 ML VIAL SUBCUT ×2 (05:49→11:59)
[2021-08-13 06:00] VITALS: BP 177/96; PULSE 96; RESP 16; TEMP 37.3; O2SAT 100
[2021-08-13 08:00] VITALS: BP 177/76; PULSE 96
[2021-08-13] MEDS: hydroCHLOROthiazide 12.5 MG TABLET PO (08:00)
[2021-08-13] MEDS: Divalproex Sodium Sprinkles 125 MG CAP.DR.SPR PO (08:00)
[2021-08-13] MEDS: Metoprolol Succinate ER 25 MG TAB.ER.24H PO (08:00)
[2021-08-13] MEDS: cloNIDine HCL 0.1 MG TABLET PO ×2 (08:00→16:08)
[2021-08-13 08:01] VITALS: BP 177/76; PULSE 96
[2021-08-13] MEDS: amLODIPine Besylate 5 MG TABLET PO (08:01)
[2021-08-13] MEDS: cephALEXin 500 MG CAPSULE PO ×2 (08:01→16:08)
[2021-08-13 08:13] LABS: Valproate 20.2 mcg/mL (50.0-100.0)
--- NOTE | 2021-08-13 11:16 | PM.PSYDC ---
DS: Providers Provider Date of Service: 08/13/21 Date of admission: 08/07/21 20:07 Date of discharge: 08/13/21 Primary care physician: Unknown Physician Consults: 08/08/21 10:58 Consult to Hospitalist Routine Consulting Provider: Hospitalist Reason For Exam: Direct admission Attending physician on discharge: Oni Del Rosariorano DS: Diagnosis Discharge Diagnosis (1) Delirium: Status: Acute (2) Urinary tract infection: Status: Acute (3) Diabetes: Status: Inactive (4) HTN (hypertension): Status: Inactive (5) Depressive disorder: Status: Acute DS: Medications Discharge Medications Home Medications: Home Medications Medication Instructions Recorded Confirmed amlodipine 5 mg tablet 5 mg PO DAILY 08/12/21 08/12/21 atorvastatin 20 mg tablet 20 mg PO DAILY 08/12/21 08/12/21 clonidine HCl 0.1 mg tablet 0.1 mg PO BID 08/12/21 08/12/21 insulin lispro 100 unit/mL 3 unit SUBCUT TID 08/12/21 08/12/21 subcutaneous solution (Humalog U-100 Insulin) tramadol 50 mg tablet 50 mg PO Q8H PRN 08/12/21 08/12/21 valsartan 80 1 tab PO DAILY 08/12/21 08/12/21 mg-hydrochlorothiazide 12.5 mg tablet Mental Status Exam Mental Status Exam Patient Appearance: Well Grooomed and Appropriate Patient Orientation: Person and Situation Level of Consciousness: Awake Patient Behavior: Cooperative Mood Description: Constricted Affect Description: Calm Patient Cognition Impaired: Yes Ability to Follow Directions: Good Speech Pattern: Clear Hallucinations: None Delusions: Not Present Thought Process: Goal Oriented Thought Content: positive for Circumstantial Judgement: Fair Data Data Completed and Pending Completed studies during hospitalization [Text1]: 08/07/21 08/08/21 08/08/21 21:17 07:51 11:51 WBC RBC Hgb Hct MCV MCH MCHC RDW Plt Count MPV Immature Gran % (Auto) Neut % (Auto) Lymph % (Auto) [place] % (Auto) Eos % (Auto) Baso % (Auto) Lymph # (Auto) [place] # (Auto) Eos # (Auto) Baso # (Auto) Abs Immat Gran (auto) Absolute Neuts (auto) Absolute Nucleated RBC Nucleated RBC % (auto) Sodium Potassium Chloride Carbon Dioxide Anion Gap BUN Creatinine Estim Creat Clear Calc Estimated GFR POC Glucose 300 H 195 H 371 H* Random Glucose Calcium Total Bilirubin Direct Bilirubin AST ALT Alkaline Phosphatase Total Protein Albumin TSH Urine Color Urine Appearance Urine pH Ur Specific [place] Urine Protein Urine Glucose (UA) Urine Ketones Urine Blood Urine Nitrite Ur Leukocyte Esterase Urine RBC Urine WBC Ur Squamous Epith Cells Urine Bacteria Valproic Acid 08/08/21 08/08/21 08/08/21 15:27 16:18 19:36 WBC RBC Hgb Hct MCV MCH MCHC RDW Plt Count MPV Immature Gran % (Auto) Neut % (Auto) Lymph % (Auto) [place] % (Auto) Eos % (Auto) Baso % (Auto) Lymph # (Auto) [place] # (Auto) Eos # (Auto) Baso # (Auto) Abs Immat Gran (auto) Absolute Neuts (auto) Absolute Nucleated RBC Nucleated RBC % (auto) Sodium Potassium Chloride Carbon Dioxide Anion Gap BUN Creatinine Estim Creat Clear Calc Estimated GFR POC Glucose 208 H 412 H* Random Glucose Calcium Total Bilirubin Direct Bilirubin AST ALT Alkaline Phosphatase Total Protein Albumin TSH Urine Color YELLOW Urine Appearance CLEAR Urine pH 5.5 Ur Specific [place] 1.020 Urine Protein TRACE Urine Glucose (UA) >=1000 H Urine Ketones NEG Urine Blood NEG Urine Nitrite NEG Ur Leukocyte Esterase 1+ H Urine RBC 1-4 Urine WBC 5-9 H Ur Squamous Epith Cells 1+ Urine Bacteria TRACE Valproic Acid 08/08/21 08/08/21 08/09/21 21:20 22:45 05:58 WBC RBC Hgb Hct MCV MCH MCHC RDW Plt Count MPV Immature Gran % (Auto) Neut % (Auto) Lymph % (Auto) [place] % (Auto) Eos % (Auto) Baso % (Auto) Lymph # (Auto) [place] # (Auto) Eos # (Auto) Baso # (Auto) Abs Immat Gran (auto) Absolute Neuts (auto) Absolute Nucleated RBC Nucleated RBC % (auto) Sodium Potassium Chloride Carbon Dioxide Anion Gap BUN Creatinine Estim Creat Clear Calc Estimated GFR POC Glucose 406 H* 337 H 233 H Random Glucose Calcium Total Bilirubin Direct Bilirubin AST ALT Alkaline Phosphatase Total Protein Albumin TSH Urine Color Urine Appearance Urine pH Ur Specific [place] Urine Protein Urine Glucose (UA) Urine Ketones Urine Blood Urine Nitrite Ur Leukocyte Esterase Urine RBC Urine WBC Ur Squamous Epith Cells Urine Bacteria Valproic Acid 08/09/21 08/09/21 08/09/21 07:27 07:27 07:45 WBC 9.0 RBC 4.60 Hgb 13.5 Hct 39.8 MCV 86.5 MCH 29.3 MCHC 33.9 RDW 11.9 Plt Count 321 MPV 10.3 Immature Gran % (Auto) 0.4 Neut % (Auto) 51.7 Lymph % (Auto) 32.0 [place] % (Auto) 11.1 H Eos % (Auto) 4.2 H Baso % (Auto) 0.6 Lymph # (Auto) 2.9 [place] # (Auto) 1.0 Eos # (Auto) 0.4 Baso # (Auto) 0.1 Abs Immat Gran (auto) 0.04 H Absolute Neuts (auto) 4.7 Absolute Nucleated RBC 0.000 Nucleated RBC % (auto) 0.0 Sodium 136 Potassium 4.3 Chloride 99 Carbon Dioxide 27 Anion Gap 14 BUN 30 H Creatinine 1.39 Estim Creat Clear Calc 29.2 Estimated GFR 37 POC Glucose 230 H Random Glucose 275 H Calcium 9.0 Total Bilirubin Direct Bilirubin AST ALT Alkaline Phosphatase Total Protein Albumin TSH 0.63 Urine Color Urine Appearance Urine pH Ur Specific [place] Urine Protein Urine Glucose (UA) Urine Ketones Urine Blood Urine Nitrite Ur Leukocyte Esterase Urine RBC Urine WBC Ur Squamous Epith Cells Urine Bacteria Valproic Acid 08/09/21 08/09/21 08/09/21 16:51 19:47 21:41 WBC RBC Hgb Hct MCV MCH MCHC RDW Plt Count MPV Immature Gran % (Auto) Neut % (Auto) Lymph % (Auto) [place] % (Auto) Eos % (Auto) Baso % (Auto) Lymph # (Auto) [place] # (Auto) Eos # (Auto) Baso # (Auto) Abs Immat Gran (auto) Absolute Neuts (auto) Absolute Nucleated RBC Nucleated RBC % (auto) Sodium Potassium Chloride Carbon Dioxide Anion Gap BUN Creatinine Estim Creat Clear Calc Estimated GFR POC Glucose 356 H* 418 H* 300 H Random Glucose Calcium Total Bilirubin Direct Bilirubin AST ALT Alkaline Phosphatase Total Protein Albumin TSH Urine Color Urine Appearance Urine pH Ur Specific [place] Urine Protein Urine Glucose (UA) Urine Ketones Urine Blood Urine Nitrite Ur Leukocyte Esterase Urine RBC Urine WBC Ur Squamous Epith Cells Urine Bacteria Valproic Acid 08/10/21 08/10/21 08/10/21 06:04 14:26 16:23 WBC RBC Hgb Hct MCV MCH MCHC RDW Plt Count MPV Immature Gran % (Auto) Neut % (Auto) Lymph % (Auto) [place] % (Auto) Eos % (Auto) Baso % (Auto) Lymph # (Auto) [place] # (Auto) Eos # (Auto) Baso # (Auto) Abs Immat Gran (auto) Absolute Neuts (auto) Absolute Nucleated RBC Nucleated RBC % (auto) Sodium Potassium Chloride Carbon Dioxide Anion Gap BUN Creatinine Estim Creat Clear Calc Estimated GFR POC Glucose 188 H 315 H Random Glucose Calcium Total Bilirubin 0.8 Direct Bilirubin 0.3 AST 19 ALT 14 Alkaline Phosphatase 77 Total Protein 7.5 Albumin 4.3 TSH Urine Color Urine Appearance Urine pH Ur Specific [place] Urine Protein Urine Glucose (UA) Urine Ketones Urine Blood Urine Nitrite Ur Leukocyte Esterase Urine RBC Urine WBC Ur Squamous Epith Cells Urine Bacteria Valproic Acid 08/10/21 08/11/21 08/11/21 19:48 06:30 12:00 WBC RBC Hgb Hct MCV MCH MCHC RDW Plt Count MPV Immature Gran % (Auto) Neut % (Auto) Lymph % (Auto) [place] % (Auto) Eos % (Auto) Baso % (Auto) Lymph # (Auto) [place] # (Auto) Eos # (Auto) Baso # (Auto) Abs Immat Gran (auto) Absolute Neuts (auto) Absolute Nucleated RBC Nucleated RBC % (auto) Sodium Potassium Chloride Carbon Dioxide Anion Gap BUN Creatinine Estim Creat Clear Calc Estimated GFR POC Glucose 276 H 256 H 364 H* Random Glucose Calcium Total Bilirubin Direct Bilirubin AST ALT Alkaline Phosphatase Total Protein Albumin TSH Urine Color Urine Appearance Urine pH Ur Specific [place] Urine Protein Urine Glucose (UA) Urine Ketones Urine Blood Urine Nitrite Ur Leukocyte Esterase Urine RBC Urine WBC Ur Squamous Epith Cells Urine Bacteria Valproic Acid 08/11/21 08/11/21 08/12/21 16:55 19:57 06:28 WBC RBC Hgb Hct MCV MCH MCHC RDW Plt Count MPV Immature Gran % (Auto) Neut % (Auto) Lymph % (Auto) [place] % (Auto) Eos % (Auto) Baso % (Auto) Lymph # (Auto) [place] # (Auto) Eos # (Auto) Baso # (Auto) Abs Immat Gran (auto) Absolute Neuts (auto) Absolute Nucleated RBC Nucleated RBC % (auto) Sodium Potassium Chloride Carbon Dioxide Anion Gap BUN Creatinine Estim Creat Clear Calc Estimated GFR POC Glucose 283 H 319 H 202 H Random Glucose Calcium Total Bilirubin Direct Bilirubin AST ALT Alkaline Phosphatase Total Protein Albumin TSH Urine Color Urine Appearance Urine pH Ur Specific [place] Urine Protein Urine Glucose (UA) Urine Ketones Urine Blood Urine Nitrite Ur Leukocyte Esterase Urine RBC Urine WBC Ur Squamous Epith Cells Urine Bacteria Valproic Acid 08/12/21 08/12/21 08/12/21 07:32 11:38 16:28 WBC RBC Hgb Hct MCV MCH MCHC RDW Plt Count MPV Immature Gran % (Auto) Neut % (Auto) Lymph % (Auto) [place] % (Auto) Eos % (Auto) Baso % (Auto) Lymph # (Auto) [place] # (Auto) Eos # (Auto) Baso # (Auto) Abs Immat Gran (auto) Absolute Neuts (auto) Absolute Nucleated RBC Nucleated RBC % (auto) Sodium Potassium Chloride Carbon Dioxide Anion Gap BUN Creatinine Estim Creat Clear Calc Estimated GFR POC Glucose 191 H 390 H* 292 H Random Glucose Calcium Total Bilirubin Direct Bilirubin AST ALT Alkaline Phosphatase Total Protein Albumin TSH Urine Color Urine Appearance Urine pH Ur Specific [place] Urine Protein Urine Glucose (UA) Urine Ketones Urine Blood Urine Nitrite Ur Leukocyte Esterase Urine RBC Urine WBC Ur Squamous Epith Cells Urine Bacteria Valproic Acid 08/12/21 08/13/21 08/13/21 19:42 00:01 05:35 WBC RBC Hgb Hct MCV MCH MCHC RDW Plt Count MPV Immature Gran % (Auto) Neut % (Auto) Lymph % (Auto) [place] % (Auto) Eos % (Auto) Baso % (Auto) Lymph # (Auto) [place] # (Auto) Eos # (Auto) Baso # (Auto) Abs Immat Gran (auto) Absolute Neuts (auto) Absolute Nucleated RBC Nucleated RBC % (auto) Sodium Potassium Chloride Carbon Dioxide Anion Gap BUN Creatinine Estim Creat Clear Calc Estimated GFR POC Glucose 405 H* 237 H 207 H Random Glucose Calcium Total Bilirubin Direct Bilirubin AST ALT Alkaline Phosphatase Total Protein Albumin TSH Urine Color Urine Appearance Urine pH Ur Specific [place] Urine Protein Urine Glucose (UA) Urine Ketones Urine Blood Urine Nitrite Ur Leukocyte Esterase Urine RBC Urine WBC Ur Squamous Epith Cells Urine Bacteria Valproic Acid 08/13/21 07:27 WBC RBC Hgb Hct MCV MCH MCHC RDW Plt Count MPV Immature Gran % (Auto) Neut % (Auto) Lymph % (Auto) [place] % (Auto) Eos % (Auto) Baso % (Auto) Lymph # (Auto) [place] # (Auto) Eos # (Auto) Baso # (Auto) Abs Immat Gran (auto) Absolute Neuts (auto) Absolute Nucleated RBC Nucleated RBC % (auto) Sodium Potassium Chloride Carbon Dioxide Anion Gap BUN Creatinine Estim Creat Clear Calc Estimated GFR POC Glucose Random Glucose Calcium Total Bilirubin Direct Bilirubin AST ALT Alkaline Phosphatase Total Protein Albumin TSH Urine Color Urine Appearance Urine pH Ur Specific [place] Urine Protein Urine Glucose (UA) Urine Ketones Urine Blood Urine Nitrite Ur Leukocyte Esterase Urine RBC Urine WBC Ur Squamous Epith Cells Urine Bacteria Valproic Acid 20.2 L 08/08/21 15:27 Urine clean catch - Clean Catch Midstream Urine Culture - Final Imaging Diagnostic Imaging Impressions Head CT 08/08/21 20:40 IMPRESSION: No evidence of acute intracranial hemorrhage or edematous territorial infarction. 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 Right maxillary sinus disease. Correlate clinically for acute sinusitis. DS: Summary Hospital Course Hospital Course: The patient was initially admitted for disorganized behavior and accusatory statements against her regarding of stealing her medications for pain. Please see HPI on admission note for more details. On admission, she was initially worked out and we found that she had a UTI so she was started on Keflex 500 mg p.o. t.i.d. to target this infection. The patient complain of some dysphoria but later he was more evident that she had mood lability in relation with her delirium for UTI. We started on a low dose of Depakote with for improvement. We organized a family meeting we discussed the problems that she had, ancillary services were arranged for discharge. The patient was able to participate in groups, she was future oriented and there were no episodes of mood lability or disorganization. Since the patient was at baseline, discharge planning was discussed Status at Discharge Cognitive/behavioral status at discharge: At baseline Functional status at discharge: independent ambulation Overall status at discharge: patient is back to baseline Time Spent with Patient Time attestation: Total time spent providing and/or coordinating discharge services: Time spent: Less than 30 minutes Discharge Plan Discharge Patient Disposition: Home, Self-Care Discharge Diagnosis: Delirium induced by UTI Referrals: Charo Massey NP [facility] [Other] - 08/18/21 2:00 pm Wendy Tsai [facility] [Other] - 08/19/21 1:30 pm (Your home visit with [facility] is 08/19/21 at 1:30PM.) [facility] [Other] - 08/14/21 (Your RN visit from [facility] is scheduled for 08/14/21.) Discharge Medications: New cephalexin 500 mg Capsule 500 mg PO TID 2 Days Qty: 6 RF: 0 divalproex 125 mg Capsule, Delayed Rel Sprinkle 125 mg PO BID 30 Days Qty: 60 RF: 0 Continued clonidine HCl 0.1 mg Tablet 0.1 mg PO BID RF: 0 atorvastatin 20 mg Tablet 20 mg PO DAILY RF: 0 amlodipine 5 mg Tablet 5 mg PO DAILY RF: 0 valsartan-hydrochlorothiazide 80-12.5 mg Tablet 1 tab PO DAILY RF: 0 insulin lispro [Humalog U-100 Insulin] 100 unit/mL Solution 3 unit SUBCUT TID RF: 0 tramadol 50 mg Tablet 50 mg PO Q8H PRN (Reason: Pain, Moderate) 14 Days Qty: 42 RF: 0 Discharge Orders: Discharge Order (Routine); Ordered 08/13/21 Ordered By: Oni Hall Diet: advance to usual diet Activity on Discharge: As tolerated Stand Alone Forms: Patient Portal Discharge page Care Plan Goals: Care plan goals achieved in the unit Health Concerns: Continue treatment by primary care physician as an outpatient Plan of Treatment: Follow-up with outpatient providers Assessment: Elderly female with a long history of anxiety, admitted for confusion, disorganized behavior and accusatory statements, admitted into the facility and then later diagnosed with UTI treated with antibiotics. The patient has an episode of delirium induced by UTI.
[2021-08-13 11:54] LABS: Glucose, Whole Blood 294 mg/dL (60-115)
[2021-08-13 16:08] VITALS: BP 154/76; PULSE 89
== END 2021-08-13 16:00 | disposition home or self-care (01) | DRG 881 ==
PROVIDERS: Psychiatry & Neurology Psychiatry; Registered Nurse; Admitting Provider Psychiatry & Neurology Psychiatry; Visit Provider Psychiatry & Neurology Psychiatry
DX: F32.9 Major depressive disorder, single episode, unspecified (principal); F05 Delirium due to known physiological condition; I10 Essential (primary) hypertension; E11.9 Type 2 diabetes mellitus without complications; E78.5 Hyperlipidemia, unspecified; F03.90 Unspecified dementia, unspecified severity, without behavioral disturbance, psychotic disturbance, mood disturbance, and anxiety; Z79.4 Long term (current) use of insulin; Z79.899 Other long term (current) drug therapy
CPT/HCPCS: 36415; 70450; 80048; 80076; 80164; 81001; 82947; 84443; 85025; 87086